=== PATIENT | male | born 1960 | race Caucasian/White ===

== ENCOUNTER 2022-02-05 19:54 | Emergency (ER) | payer BC, OTHER ==
[2022-02-05] MEDS ORDERED: Lidocaine 1% 10 ML MDV INJECT ONE (20:22)
[2022-02-05] MEDS ORDERED: Diphtheria,Pertussis(Acell),Tetanus Vaccine 0.5 ML Syringe IM ONE (20:23)
== END 2022-02-05 21:15 | disposition home or self-care (01) ==
LOC: JD.ED 19:54
DX: S61.012A Laceration without foreign body of left thumb without damage to nail, initial encounter (principal); Z23 Encounter for immunization; I10 Essential (primary) hypertension; W26.8XXA Contact with other sharp object(s), not elsewhere classified, initial encounter
CPT/HCPCS: 12001; 90471; 90715; 99282-25; 99283